=== PATIENT | female | born 1995 | race Caucasian/White ===

== ENCOUNTER 2019-08-24 16:22 | Emergency (ER) | payer MEDICAID, SELFPAY ==
--- NOTE | ~2019-08-24 | CT_ITS ---
EXAMINATION: CT abdomen pelvis w con INDICATION: Mid abdominal pain TECHNIQUE: Computed tomographic images of the abdomen and pelvis were obtained after the administrati on of 100 cc of Omnipaque 350 intravenous contrast. The dose-length product (DLP) was 1073.41 mGy-cm. Automated exposure control and iterative reconstruction technique were employed. COMPARISON: 07/08/2013 FINDINGS: The lung bases are clear. The heart size is normal. The liver, spleen, pancreas, gallbladde r, and adrenal glands are normal. The kidneys are unremarkable. No pathologically enlarged abdominal or pelvic lymph nodes are identified. There is no free intraperitoneal gas or evidence of bowel obstr uction. A retroaortic left renal vein is noted. The appendix is normal. IMPRESSION: 1. No CT correlate for the patient's symptoms. Reviewed, dictated and finalized at location A.
[2019-08-24 16:32] VITALS: BP 135/85; PULSE 93; RESP 16; TEMP 37.3; O2SAT 100
[2019-08-24 16:51] VITALS: BP 132/82; PULSE 96; RESP 16; TEMP 37.2; O2SAT 98
[2019-08-24] MEDS: FAMOTIDINE 20 MG/2 ML VIAL IV PUSH (17:02)
[2019-08-24] MEDS: LACTATED RINGERS 1,000 ML 999 ML IV CONT (17:03)
[2019-08-24] MEDS: ONDANSETRON INJ 4 MG/2 ML VIAL IV PUSH (17:03)
[2019-08-24 17:08] LABS: Basophils Absolute Auto 0.1 K/mm3 (0.0-0.1); Basophils Percent Auto 0.5 % (0.2-1.2); Eosinophils Absolute Auto 0.1 K/mm3 (0-0.3); Eosinophils Percent Auto 0.4 % (0-4.4); Hematocrit 43.3 % (37.0-47.0); Hemoglobin 14.2 g/dL (12.0-15.0); Immature Granulocyte Absolute 0.03 K/mm3 (0.00-0.031); Immature Granulocyte Percent A 0.2 % (0-0.5); Lymphocytes Absolute Auto 4.44 K/mm3 (0.9-3.2); Lymphocytes Percent Auto 35.1 % (18.3-44.2); Mean Corpuscular HGB Conc 32.8 g/dl (32-36); Mean Corpuscular Hemoglobin 29.5 pg (26-34); Mean Corpuscular Volume 89.8 fl (80-100); Mean Platelet Volume 9.8 fl (7.4-10.4); Monocytes Absolute Auto 0.6 K/mm3 (0.1-0.6); Neutrophils Absolute Auto 7.4 K/mm3 (1.3-6.7); Neutrophils Percent Auto 58.8 % (45.5-73.1); Platelet Count Result 296 k/mm3 (150-375); Red Blood Count 4.82 M/mm3 (4.2-5.4); Red Cell Distribution Width 13.1 % (11.5-14.5); White Blood Count 12.7 K/mm3 (4.5-10.0)
[2019-08-24 17:12] LABS: Add Urine Microscopic? YES; Appearance Urine Clear (Clear); Bacteria Urine Trace /hpf; Bilirubin Urine Negative (Negative); Blood Urine Negative (Negative); Color Urine Yellow (Yellow); Glucose Urine UA Negative (Negative); Ketones Urine Negative (Negative); Leukocyte Esterase Ur Negative LEU/UL (Negative); Mucus Urine Few /lpf; Nitrate Urine Negative (Negative); Protein Urine 1+ mg/dL (Negative); RBC Urine 0-2 /hpf (0-2); Squamous Epithelial Cell Urine Few /hpf (Few); Urobilinogen Urine Negative mg/dL (<2.0)
[2019-08-24 17:19] LABS: Alanine Aminotransferase 20 U/L (4-35); Albumin Level 4.6 g/dL (3.5-5.1); Alkaline Phosphatase 84 U/L (38-126); Aspartate Amino Transferase 23 U/L (14-36); Bilirubin,Total 0.3 mg/dL (0.2-1.3); Blood Urea Nitrogen 10 mg/dL (7-17); Calcium 9.3 mg/dL (8.4-10.2); Carbon Dioxide 26 mmol/L (22-30); Chloride 101 mmol/L (98-107); Estimated CRCL calculation 146 ml/min; Estimated Glomerular Filt Rate > 60; Glucose 94 mg/dL (65-105); Lipase 29 U/L (23-300); Potassium 4.2 mmol/L (3.4-5.0); Sodium 135 mmol/L (137-145)
--- NOTE | 2019-08-24 17:21 | ED.ABDPAIN ---
HPI - Abdominal Pain General Chief Complaint: Abdominal Pain <RAH Leyva Sukhjinder Filed: 08/24/19 19:01> Stated Complaint: abd pain <RAH Leyva Sukhjinder Filed: 08/24/19 19:01> Time Seen by Provider: 08/24/19 16:36 <RAH Leyva Sukhjinder Filed: 08/24/19 19:01> Source: patient <RAH Leyva Last Filed: 08/24/19 19:01> Mode of arrival: ambulatory <RAH Leyva Sukhjinder Filed: 08/24/19 19:01> Limitations: no limitations <RAH Leyva Sukhjinder Filed: 08/24/19 19:01> History of Present Illness HPI narrative: Patient is a 24-year-old female who presents with 3 days duration of periumbilical abdominal pain with nausea vomiting patient denies similar occurrence in the past tried some [id number] medications with minimal improvement patient on arrival to emergency department. Pain radiates to the back <RAH Leyva Sukhjinder Filed: 08/24/19 19:01> Related Data Allergies/Adverse Reactions: Allergies Allergy/AdvReac Type Severity Reaction Status Date / Time Penicillins Allergy Intermediate Unknown Verified 08/24/19 16:52 ARTIFICIAL STRAWBERRY Allergy Mild HIVES Uncoded 05/02/09 09:49 FLAVORING <RAH Leyva Last Filed: 08/24/19 19:01> Review of Systems Review of Systems: All systems reviewed & are unremarkable except as noted in HPI and below <RAH Leyva Last Filed: 08/24/19 19:01> Exam Narrative: Exam Narrative: GENERAL: Well-appearing, well-nourished, and in no acute distress. HEAD: Normocephalic, atraumatic. EYES: PERRLA and EOMI. ENT: Nares clear, no rhinorrhea or epistaxis. Mucous membranes moist. CHEST: Clear to auscultation. No respiratory distress. No wheezes rales or rhonchi HEART: Regular rate and rhythm. No murmur heard. Normal peripheral pulses. ABDOMEN: Soft, tenderness in the lower quadrants of the abdomen, nondistended, normal active bowel sounds. EXTREMITIES: Normal range of motion. No edema. SKIN: Warm, dry, no rash. NEURO: No focal deficits. Alert and oriented x3. PSYCH: Normal mood and affect. <Bennie Kaur PA-C - Last Filed: 08/24/19 19:01> Course Course Emergency Course: Patient in the room in no distress aware of case findings treatment plan and diagnosis agreeing to follow-up as instructed given medications in the emergency department with improvement. Aware of case findings treatment plan and diagnosis <Bennie Kaur PA-C - Last Filed: 08/24/19 19:01> Vital Signs Vital signs: Vital Signs Temperature 99.1 F 08/24/19 16:32 Pulse Rate 93 08/24/19 16:32 Respiratory Rate 16 08/24/19 16:32 Blood Pressure 135/85 08/24/19 16:32 Pulse Oximetry 100 08/24/19 16:32 Temperature 99.0 F 08/24/19 16:51 Pulse Rate 75 08/24/19 18:58 Respiratory Rate 16 08/24/19 18:58 Blood Pressure 131/70 08/24/19 18:58 Pulse Oximetry 99 08/24/19 18:58 <Bennie Kaur PA-C - Last Filed: 08/24/19 19:01> Vital Signs Temperature 99.1 F 08/24/19 16:32 Pulse Rate 93 08/24/19 16:32 Respiratory Rate 16 08/24/19 16:32 Blood Pressure 135/85 08/24/19 16:32 Pulse Oximetry 100 08/24/19 16:32 Temperature 99.0 F 08/24/19 16:51 Pulse Rate 75 08/24/19 18:58 Respiratory Rate 16 08/24/19 18:58 Blood Pressure 131/70 08/24/19 18:58 Pulse Oximetry 99 08/24/19 18:58 <Vania Gooden MD - Last Filed: 08/24/19 19:14> MDM - Abdominal Pain MDM Narrative Medical decision making narrative: Patient in the room with abdominal pain of unknown etiology no high risk changes in the blood work or imaging felt appropriate for outpatient reevaluation agreeing to follow-up as directed. Patient also provided with reasons to return <RAH Leyva Last Filed: 08/24/19 19:01> Lab Data Result diagrams: : 08/24/19 17:02 08/24/19 17:02 <LANCE Leyva
[2019-08-24 18:58] VITALS: BP 131/70; PULSE 75; RESP 16; O2SAT 99
== END 2019-08-24 19:13 | disposition home or self-care (01) ==
PROVIDERS: Emergency Medicine Emergency Medical Services; Emergency Provider General Practice
DX: R10.33 Periumbilical pain (principal)
CPT/HCPCS: 36415; 74177; 80053; 81001; 81025; 83690; 85025; 96361; 96374; 96375; 99284; J0131; J2405; J7120; Q9967

== ENCOUNTER 2021-04-02 13:39 | Emergency (ER) | payer OTHER, SELFPAY ==
[2021-04-02 13:52] VITALS: BP 128/87; PULSE 90; RESP 16; TEMP 37.3; O2SAT 99
--- NOTE | 2021-04-02 14:08 | ED.DENTAL ---
HPI - Dental/Oral General Chief complaint: Dental/Oral Stated complaint: right side facial swelling Time Seen by Provider: 04/02/21 14:15 Source: patient Mode of arrival: ambulatory History of Present Illness HPI Narrative: 26-year-old female presented for complaint of right facial swelling worsening over the past 4 days. She states at onset it was a small and firm nodule noted in her cheek but has continued to spread. She denies redness, bruising, injury. She denies dental pain, n/v/d/f/c. Denies sore throat, sinus pressure/congestion, ear pain. Taking unknown otc meds for sinus and 'pressure.' Complaint: tooth pain Related Data Allergies Allergy/AdvReac Type Severity Reaction Status Date / Time Penicillins Allergy Intermediate Hives Verified 04/02/21 14:00 ARTIFICIAL STRAWBERRY Allergy Mild HIVES Uncoded 04/02/21 14:00 FLAVORING Review of Systems Review of Systems: CONSTITUTIONAL: Denies body aches, fever, chills ENT: Denies rhinorrhea, congestion, sore throat, or otalgia. Reports right facial swelling CARDIOVASCULAR: Denies chest pain, palpitations RESPIRATORY: Denies cough or dyspnea. SKIN: Denies rash, itching, or wounds. MUSCULOSKELETAL: Denies myalgia. NEUROLOGIC: Denies headache, numbness, tingling, or weakness. PMFSH Comments At time of signature, I have reviewed and agree with nursing past medical, surgical, social and family history unless otherwise noted. Please see nursing chart for further information. There is no relevant family history pertinent to the presenting complaint Exam Narrative: GENERAL: Appears in pain; Well-appearing, well-nourished, and in no acute distress. HEAD: Normocephalic, atraumatic. EYES: EOMI. No redness or drainage. Conjunctivae normal. ENT:Right pre-auricular swelling, no erythema/bruising noted; tender to palpation; Mucous membranes pink and moist. TMs normal bilaterally. Throat normal. Uvula midline. NECK: Normal AROM. Supple. No lymphadenopathy. CHEST: No respiratory distress. Clear to auscultation. HEART: Regular rate and rhythm. No murmur appreciated. ABDOMEN: Soft, nontender, nondistended, normal active bowel sounds. SKIN: Warm, dry, no rash. Normal skin turgor. NEURO: No focal deficits. Alert and oriented x3. Gait steady. Course Course Emergency Course: Pt will start with treatment for sialoadenitis, if no improvement or worsening condition pt will start abx and f/u with ENT prn. Patient is aware of diagnosis, understands and agrees to treatment plan. Anticipatory guidance given. Patient agrees to follow-up as directed and is aware of reasons to seek care at the emergency department. Portions of this record may have been created with voice recognition software Level of Care: Express Care Visit Vital Signs Vital signs: Vital Signs Temperature 99.2 F 04/02/21 13:52 Pulse Rate 90 04/02/21 13:52 Respiratory Rate 16 04/02/21 13:52 Blood Pressure 128/87 04/02/21 13:52 Pulse Oximetry 99 04/02/21 13:52 Temperature 99.2 F 04/02/21 13:52 Pulse Rate 90 04/02/21 13:52 Respiratory Rate 16 04/02/21 13:52 Blood Pressure 128/87 04/02/21 13:52 Pulse Oximetry 99 04/02/21 13:52 MDM - Dental/Oral MDM Narrative Medical decision making narrative: There are no focal signs of space occupying lesions that are compromising to the airway; no dysphagia, odynophagia, dysphonia, or dyspnea. No uvular deviation or soft palate edema. Patient is non-toxic appearing. The floor of the mouth is soft with no signs of Filiberto's Angina; no induration below mandible, no neck pain. Patient is without trismus or drooling and able to swallow secretions. Patient is felt appropriate for discharge home with ENT/ PCP follow up. Discharge Plan Discharge Clinical Impression: Right facial swelling Patient Disposition: Home, Self-Care Condition: Stable Instructions: Antibiotic Form, Sialoadenitis (ED) Additional Instructions: Stay well hydra
== END 2021-04-02 14:32 | disposition home or self-care (01) ==
PROVIDERS: Emergency Provider Nurse Practitioner Family
DX: R22.0 Localized swelling, mass and lump, head (principal)
CPT/HCPCS: 99213; G0463